=== PATIENT | female | born 1955 | race Caucasian/White ===

== ENCOUNTER → 2023-08-03 07:44 | Outpatient (REF) | payer MEDICARE, SELFPAY | LOC: WDC 07:44 | PROVIDERS: ATTENDING PHYSICIAN Internal Medicine | DX: Z12.31 Encounter for screening mammogram for malignant neoplasm of breast (principal) | CPT/HCPCS: 77063; 77067 ==

== ENCOUNTER → 2024-01-29 10:13 | Outpatient (REF) | payer MEDICARE, SELFPAY | LOC: HWRAD 10:13 | PROVIDERS: ATTENDING PHYSICIAN Family Medicine | DX: J01.00 Acute maxillary sinusitis, unspecified (principal) | CPT/HCPCS: 70486 ==

== ENCOUNTER → 2024-02-15 07:51 | Outpatient (REF) | payer MEDICARE, SELFPAY ==
[2024-02-15 09:31] LABS: ALT (SGPT) 47 U/L (0-35); AST (SGOT) 39 U/L (14-36); Albumin 4.4 g/dl (3.5-5.0); Alkaline Phosphatase 83 U/L (38-126); Amylase 72 U/L (30-110); Blood Urea Nitrogen 15 mg/dl (7-17); Calcium 9.5 mg/dl (8.4-10.2); Carbon Dioxide 31 mmol/L (22-30); Chloride 101 mmol/L (98-107); Glucose 92 mg/dl (70-99); Lipase 81 U/L (23-300); Potassium 4.3 mmol/L (3.5-5.1); Sodium 140 mmol/L (135-145); Total Bilirubin 0.6 mg/dl (0.2-1.3); Total Protein 6.9 g/dl (6.3-8.2); eGFR > 60.00
[2024-02-17 01:55] LABS: ANA, IgG Reflex to HEp-2 None Detected (None Detected)
== END ==
LOC: REG 07:51
PROVIDERS: ATTENDING PHYSICIAN Family Medicine
DX: R76.8 Other specified abnormal immunological findings in serum (principal); J30.1 Allergic rhinitis due to pollen; R10.13 Epigastric pain
CPT/HCPCS: 36415; 80053; 82150; 83690; 86038

== ENCOUNTER → 2024-02-22 06:55 | Outpatient (REF) | payer MEDICARE, SELFPAY | LOC: RAD 06:55 | PROVIDERS: ATTENDING PHYSICIAN Family Medicine; REFERRING PHYSICIAN Internal Medicine Gastroenterology | DX: R74.8 Abnormal levels of other serum enzymes (principal); J30.1 Allergic rhinitis due to pollen; R10.13 Epigastric pain | CPT/HCPCS: 76700 ==

== ENCOUNTER → 2024-05-06 09:27 | Outpatient (REF) | payer MEDICARE, SELFPAY | LOC: HWRAD 09:27 | PROVIDERS: ATTENDING PHYSICIAN Family Medicine | DX: J30.1 Allergic rhinitis due to pollen (principal); R59.9 Enlarged lymph nodes, unspecified | CPT/HCPCS: 76536 ==

== ENCOUNTER → 2024-05-06 14:08 | Outpatient (REF) | payer MEDICARE, SELFPAY ==
[2024-05-06 14:34] LABS: Glucose - Point of Care 91 mg/dl (70-99)
== END ==
LOC: RAD 14:08
PROVIDERS: ATTENDING PHYSICIAN Physician Assistant; FAMILY PHYSICIAN Family Medicine
DX: R10.31 Right lower quadrant pain (principal)
CPT/HCPCS: 82962

== ENCOUNTER 2024-05-06 22:31 | Observation (INO) | payer MEDICARE, SELFPAY ==
[2024-05-06] VITALS (12 sets, daily range): BP systolic 143–178; BP diastolic 79–98; BMI 22.0
[2024-05-06 15:57] LABS: % Basophils 0.9 % (0-2); % Eosinophils 2.3 % (0-6); % Immature Granulocytes 0.5 % (0-0.5); % Lymphocytes 42.3 % (20.5-51.1); % Monocytes 6.9 % (1.7-9.3); % Neutrophils 47.1 % (42.2-75.2); Absolute Basophils 0.1 10^3/uL (0-0.2); Absolute Eosinophils 0.1 10^3/uL (0-0.7); Absolute Lymphocytes 2.4 10^3/uL (1.2-3.4); Absolute Monocytes 0.4 10^3/uL (0.1-0.6); Absolute Neutrophils 2.7 10^3/uL (1.4-6.5); Hematocrit 36.5 % (37.0-47.0); Hemoglobin 12.5 g/dL (12.0-16.0); Mean Corp Hgb Conc. 34.2 g/dL (33.0-37.0); Mean Corpuscular Hgb 29.2 pg (27.0-31.0); Mean Corpuscular Volume 85.3 fL (81.0-99.0); Mean Platelet Volume 9.6 fL (7.4-10.4); Nucleated Red Blood Cells % 0 %; Platelet Count 262 10^3/uL (130-400); Red Blood Cell Count 4.28 10^6/uL (4.20-5.40); Red Cell Dist. Width 12.7 % (11.5-14.5); White Blood Cell Count 5.7 10^3/uL (4.8-10.8)
[2024-05-06 16:08] LABS: ALT (SGPT) 29 U/L (0-35); AST (SGOT) 34 U/L (14-36); Alkaline Phosphatase 92 U/L (38-126); Blood Urea Nitrogen 16 mg/dl (7-17); Calcium 9.6 mg/dl (8.4-10.2); Carbon Dioxide 30 mmol/L (22-30); Chloride 105 mmol/L (98-107); Estimated Creatinine Clearance 71 ml/min; Glucose 117 mg/dl (70-99); Potassium 3.5 mmol/L (3.5-5.1); Sodium 140 mmol/L (135-145); Total Bilirubin 0.5 mg/dl (0.2-1.3); Total Protein 6.7 g/dl (6.3-8.2); eGFR > 60.00
--- NOTE | 2024-05-06 16:52 | ED.GENMED ---
History of Present Illness
General
Chief Complaint: Fainting/Passed Out
Source: patient
Exam Limitations: none
Time Seen by Provider: 05/06/24 16:50
Nursing documentation reviewed up to this point in time: agreed with
History of Present Illness
History of Present Illness:
Patient is a 69 -year-old female presents to the ER for evaluation after syncopal episode. Patient is scheduled to get her gallbladder removed next week ( by DR Damian) and was doing an outpatient CAT scan. She reports she drank the barium
this morning and felt very nauseous and had diarrhea with the. She felt sick prior to even getting to radiology. She reports while sitting in the chair in radiology outpatient she felt nauseous and apparently had a syncopal episode. Patient
denies any actual chest pain. She presently just feels tired and nauseous.
Past History
Past History
ED Past Medical History: Other (Heart murmur)
ED Past Surgical History: Orthopedic (Bicep tendon repair)
Social History
Tobacco: Former smoker
Alcohol: None
Drug: None
Personal:
Living: with family
Employment: Employed
Family History
Family History: Hypertension
Review of Systems
Review of Systems
Allergies reviewed?: Yes
All Other Systems: ROS reviewed and negative except as documented in HPI and ROS
Constitutional: Reports no symptoms; Denies fever, fatigue or chills
EENT: Reports no symptoms
Respiratory: Reports no symptoms
Cardiac: Reports no symptoms
ABD/GI: Reports nausea and diarrhea; Denies abdominal pain
: Reports no symptoms
Musculoskeletal: Reports no symptoms
Skin: Reports no symptoms
Neurological: Reports no symptoms
Psychiatric: Reports no symptoms
Phy Exam
General Physical Exam
General Presentation: no apparent distress
General age: appears stated age
General Skin: warm and dry
General Habitus: normal
General Mental: alert
General Hydration: appears well hydrated
Cardiovascular Exam
Cardiovascular Exam: regular rate/rhythm, no murmur and normal peripheral pulses
Pulmonary Exam
Pulmonary Exam: lungs clear and no respiratory distress
Neurological Exam
Neurological Exam: alert and oriented x3
Musculoskeletal Exam
Musculoskeletal Exam: full ROM
Skin Exam
Skin Exam: normal color and warm/dry
Psychiatric Exam
Psychiatric Exam: normal mood/affect
Course
Orders/Labs/Results
Orders:
Orders
05/06/24 Breakfast
Clear Liquid
At Your Request: Full Participation
05/06/24 15:10
EKG [Electrocardiogram (*1)] Urgent
Reason for Study: Syncope
EKG- Treatment ONCE
05/06/24 15:40
CBC/With Diff [Complete Blood Count/With Diff] Urgent
CMP [Comprehensive Metabolic Panel] Urgent
05/06/24 16:53
0.9% Sodium Chloride 1000 ml [Nss] 1,000 ml IV BOLUS
Ondansetron Injectable [Zofran] 4 mg IV NOW STA
05/06/24 17:55
Ondansetron Injectable [Zofran] 4 mg .ROUTE .STK-MED ONE
05/06/24 17:56
Ondansetron Injectable [Zofran] 4 mg IV NOW STA
05/06/24 19:25
Ketorolac [Toradol] 15 mg IV NOW STA
05/06/24 21:35
0.9% Sodium Chloride 1000 ml [Nss] 1,000 ml IV BOLUS
Diphenhydramine [Benadryl] 25 mg IV NOW STA
Famotidine [Pepcid] 20 mg IV NOW STA
Prochlorperazine [Compazine] 10 mg IV NOW STA
05/06/24 22:00
Admit/Transfer Patient As Directed
Co-Sign Provider:
Level of Care: Observation services
Assign to:: Telemetry
Physician / Group: belia carney
Diagnosis: syncope
Reason for Telemetry: Syncope
Date to Stop Telemetry: 05/08/24
Time to Stop Telemetry: 11:00
PRN Pain Medication Management As Directed
May give lesser potent ordered pain med per pt: Yes
preference::
Protocol:: Medication orders for pain may be administered in a
manner that supports deferring to patient preference
when the pt is:
- Requesting an ordered lesser potent pain medication.
Least to most potent pain medications are defined
as: acetaminophen < NSAID < tramadol < opioids
(morphine, oxycodone, hydromorphone).
- Requesting a lesser dose of the same medication IF
ORDERED.
- Requesting a less intrusive route of administration
if both routes are prescribed by the provider (PO <
IV).
05/06/24 22:01
Code Status As Directed
Resuscitation Status: Full Code
05/06/24 22:47
0.9% Sodium Chloride 1000 ml [Nss] 1,000 ml IV 40 mls/hr
Acetaminophen [Tylenol] 650 mg PO Q4HPRN PRN
Bisacodyl [Dulcolax] 10 mg RECTAL [id number] PRN
Docusate W/Senna [Senokot-S] 1 tablet PO BIDPRN PRN
Ondansetron Injectable [Zofran] 4 mg IV Q6HPRN PRN
Polyethylene Glycol Powder [Miralax] 17 grams PO DAILYPRN PRN
05/06/24 22:47
Consult Notification Routine
Specialty to Notify: Surgical
Consult Notification Routine
Specialty to Notify: Surgical
SURGICAL CONSULT Routine
Consulting Provider: Matthew Sosa
Was physician already notified: No
Reason for consult: cholelithiasis
Activity As Directed
Activity Level: As Tolerated
Vital Signs As Directed
Frequency: Per unit guidelines
DX Deep Vein Thrombosis Video Routine
05/07/24 06:00
Abdomen/Pelvis w Contrast CT [CT Abd/pelvis W Iv Cont] IN AM
Comment: with oral and IV contrast
Reason For Exam: abdominal pain
05/07/24 08:00
Famotidine [Pepcid] 20 mg PO DAILY
Orthostatic Vital Signs As Directed
Orthostatic VS Frequency: Daily
05/07/24 18:00
Enoxaparin Sodium [Lovenox] 40 mg SC QPM
05/08/24 11:00
DC Protocol for Telemetry ONCE
Abnormal Lab Results
05/06/24
15:40
Hct 36.5 L %
(37.0-47.0)
Glucose 117 H mg/dl
(70-99)
05/06/24 15:40
05/06/24 15:40
Vital Signs
Initial and Last Documented VS:
Initial Vital Signs
Temp Pulse Resp BP Pulse Ox
97.4 F 70 16 172/87 98
05/06/24 15:13 05/06/24 15:13 05/06/24 15:13 05/06/24 15:13 05/06/24 15:13
Last Documented Vital Signs
Temp Pulse Resp BP Pulse Ox
98.1 F 68 16 158/79 98
05/06/24 22:54 05/06/24 22:54 05/06/24 22:54 05/06/24 22:54 05/06/24 22:54
MDM/Problems Addressed
Differential Diagnosis Includes:
syncope , dehydration , vasovagal syncope.
MDM/Problems Addressed:
Patient is a 69-year-old female who was scheduled to have a cholecystectomy next week. She was getting outpatient CAT scan that was ordered by her family doctor with barium and started to feel nauseous this morning while drinking the barium. She
then had a witnessed syncopal episode in radiology while drinking the barium. She has vomited several times and felt very nauseous upon presentation. She does report that she has nausea and pain associated with her gallbladder to begin with. She
was medicated for nausea and fluids here however continues to feel nauseous and not well. I offered patient CAT scan with IV contrast since she never completed the exam however she wanted to hold off.
Since patient has received fluids and nausea medicine still is persistently nauseous and not feeling well will admit.
*Pulse Oximetry
Patient hypoxic: no
*Critical Care Note
Total Time (30-74mins, 75-104mins- exclusive of procedures): Not Applicable
ED Attending Note
-
Portions of this chart may have been created with voice recognition software.� Occasional wrong word or��sound alike� substitutions may have occurred due to the inherent limitations of voice recognition software.
Discharge Plan
Departure
Patient Disposition: Admit
Date of Disposition: 05/06/24
Time of Disposition: 21:22
Admit to: Med/Surg
Admit to doctor: hospitalist
Presentation/result/management discussed w/ accepting MD/DO: Hospitalist
Patient with high blood pressure during this ER visit?: Yes
Condition: Fair
Covid-19: Not Applicable
Discharge Problem:
Syncope
Interventions
Interventions:
*Risk Screen - Suicide Last Done: 05/06/24 15:13
*General Assessment Last Done: 05/06/24 15:13
*Neglect/Abuse Screening Last Done: 05/06/24 15:13
*ED- Fall Risk Assessment Last Done: 05/06/24 15:13
*ED COVID-19 Vaccine History Last Done: 05/06/24 15:19
ED- Cardiac Assessment Last Done: 05/06/24 15:19
ED- Neurological Assessment Last Done: 05/06/24 15:19
[2024-05-06] MEDS: ZOFRAN 4 MG IV ×2 (16:57→17:57)
[2024-05-06] MEDS: NSS 1000 IV ×3 (16:59→23:13)
[2024-05-06] MEDS: TORADOL 15 MG IV (19:30)
[2024-05-06] MEDS: PEPCID 20 MG IV (21:44)
[2024-05-06] MEDS: BENADRYL 25 MG IV (21:44)
--- NOTE | 2024-05-06 21:45 | HPS.HSE ---
Family Physician
-
Family Physician: America Barahona
Chief Complaint
-
epigastric pain /nausea
History of Present Illness
69 -year-old female with PMH for gallstones presents to the ER for evaluation after syncopal episode. Patient is scheduled to get her gallbladder removed next week ( by DR Damian). her PCP ordered CT scan to see if anything else was causing
her symptoms. She reports she drank the barium this morning and felt very nauseous and had multiple episode of diarrhea and vomiting. She felt sick prior to even getting to radiology. She reports while sitting in the chair in radiology outpatient
she felt nauseous and apparently had a syncopal episode. Patient denies any actual chest pain.denied sob. stated some LO. denied dysuria or hematuria.
patient received Benadryl, famotidine, Toradol, Normal saline, Zofran and Compazine in ER. admitting for further managment.
Medical History
Past Medical History
Past Medical History: Reports Other
Additional Past Medical History:
Osteopenia
Adenomatous polyp of colon
synovitis
Hypertension
Patient is a carcinoma
Conjunctivitis
Shingles
Migraines
Vertigo
Gallstones
Past Surgical History: Reports Other
Additional Past Surgical History:
Tonsillectomy
Left bicep tendon repair
Mohs surgery left foot
Social History
Tobacco: Former Smoker
Alcohol: None
Drug: None
Living: With Family
Family History
Family History: Not pertinent
Allergies / Home Medications
Allergies reflects when Allergies were last updated in [employer].
Home Medications with original date entered in [employer]
Allergy/Medication List:
Allergies
Allergy/AdvReac Type Severity Reaction Status Date / Time
cats Allergy Unknown Uncoded 05/06/24 15:19
Home Medications
No Meds [No Current Medications] 05/05/24
Review of Systems
-
Constitutional: Reports No Symptoms
EENT: Reports No Symptoms
Respiratory: Reports No Symptoms
Cardiac: Reports No Symptoms
Abdomen/GI: Reports Abdominal Pain, Nausea, Vomiting and Diarrhea
: Reports No Symptoms
Musculoskeletal: Reports No Symptoms
Skin: Reports No Symptoms
Neurological: Reports No Symptoms
Endocrine: Reports No Symptoms
Hematologic/Lymphatic: Reports No Symptoms
Psych: Reports No Symptoms
Physical Exam
Vital Signs
Vital Signs
Temp Pulse Resp BP Pulse Ox
97.4 F 72 16 154/84 96
05/06/24 15:13 05/06/24 21:00 05/06/24 21:00 05/06/24 21:00 05/06/24 21:00
Physical Exam
General: Well Developed, Well Nourished and No Apparent Distress
HEENT: NormoCephalic, Moist mucous membranes and Atraumatic
Respiratory: Clear
Cardiac: S1/S2 and Regular Rhythm; No Murmur or Rub
GI: Soft, Non Distended, Normal Bowel Sounds and Tender; No Organomegaly
Rectal: Deferred by Provider
Musculoskeletal: No Clubbing, No Cyanosis and No Edema
Skin: No Rash
Neuro: AO x 3 and Nonfocal/grossly intact
Psych: Calm
Laboratory Results
-
05/06/24 15:40
05/06/24 15:40
Laboratory Results
Total Bilirubin 0.5 mg/dl (0.2-1.3) 05/06/24 15:40
AST 34 U/L (14-36) 05/06/24 15:40
ALT 29 U/L (0-35) 05/06/24 15:40
Alkaline Phosphatase 92 U/L (38-126) 05/06/24 15:40
Data Reviewed
-
Lab Data: Labs Reviewed by me
Impression/Plan
-
#nausea/vomiting/diarrhea likely from Barium
-clear liquid diet, advance as tolerated
-Zofran prn for n/v
-Pepcid added
#syncope likely vasovagal
-EKG with NSR
-orthostatics
#gallstones
-plan for OR on
-obtain CT of abdomen in AM
-pre mediate patient with Zofran in am prior to CT
-surgery consulted
#DVT prophylaxis
-Lovenox
#CODE status
-full code
[2024-05-06] MEDS: COMPAZINE 10 MG IV (21:46)
--- NOTE | 2024-05-06 22:07 | W.PN.UPDATE ---
Update Note
Progress Note Update
This note serves as an addendum to the H&P by cast iron dipper LEANN Lulu PINEDA
HPI
69F No PMHx , Not on any meds seen at ER
- evaluation after syncopal episode at ER;
- pending scheduled to get elective cholecystectomy coming Thurs by Dr Damian
- at outpatient CT, drank the barium this morning and felt very nauseous and had diarrhea
- She felt sick prior to even getting to radiology.
- reports while sitting in the chair in radiology outpatient she felt nauseous and apparently had a syncopal episode.
ROS
denies any actual chest pain. She presently just feels tired and nauseous.
PHX: Nil
Vital Signs
Temp Pulse Resp BP Pulse Ox
97.4 F 72 16 154/84 96
05/06/24 15:13 05/06/24 21:00 05/06/24 21:00 05/06/24 21:00 05/06/24 21:00
PE
Gen: Not toxic
HEENT: anicteric
Neck: supple. No carotid bruit
Lungs:CTA
Cor: RRR S1 S2
Abdomen: soft abdomen. Benign exam
SCHOOL ADMINISTRATOR: AAO3
MS: no edema
Psych:apprproaite
Data
05/06/24
15:40
WBC 5.7
Hgb 12.5
Plt Count 262
Potassium 3.5
BUN 16
Creatinine 0.6
eGFR > 60.00
Total Bilirubin 0.5
AST 34
ALT 29
02/22/24 US Abdomen Complete/Upper
Cholelithiasis. No evidence for gallbladder wall thickening or pericholecystic edema.
No evidence for biliary ductal dilation.
Last hospitalist admission:
ASSESSMENT & PLAN
Syncope preceded by nausea and osmotic diarrhea in response to PO contrast
Suspect vasovagal syncope
- Ortho VSS times one
- IV NS 40/H for 1 L
- PRN anti emetics
Cholelithiasis HX
No evidence for gallbladder wall thickening or pericholecystic edema.
No evidence for biliary ductal dilation.
- afebrile, nl WCC, unremarkable LFTs
- No RHC tenderness
- Can attempt CT AP PO/IV contrast, can premedicate with IV Zofran 1 hr prior to contrast while IP
- GS consult
DVT Px:
Full code
Obs TLM
--- NOTE | 2024-05-06 23:39 | PTCARENOTE ---
Pt. rec'd from ED into room 410-1 AAOx3, VSS, NSR on the monitor. Denies any nausea at this time; right upper quadrant tender with intermittent pain (level 1/10, aching), pt. denies need for pain medication. Gait slightly unsteady and pt.
generally weak but denies dizziness; fall precautions initiated. IVF's initiated, pt. oriented to room plan of care discussed. Pt. resting quietly.
[2024-05-07 03:55] VITALS: BP 138/72
[2024-05-07 08:14] VITALS: BP 129/69
--- NOTE | 2024-05-07 08:45 | W.PN.HOSP.TC ---
Today's Communication/Plan
-
Discharge today if tolerating low-fat diet
Assessment / Plan
Assessment / Plan
#Nausea/vomiting/diarrhea likely from Barium
Resolved
Can be discharged today if she tolerates her low-fat diet
#Syncope likely vasovagal
Orthostatics negative, EKG shows normal sinus rhythm
# Cholelithiasis
-General Surgery following, plan for outpatient cholecystectomy on
-Follow-up CT of abdomen/pelvis
DVT prophylaxis�subcu Lovenox
Full code
Total time spent to see the patient on the floor, examine the patient, review data and lab results, discuss treatment plan with patient, nursing staff around 35 minutes.
Physical Exam
General: No acute distress
HEENT: Normocephalic, Atraumatic, EOMI, MMM
Respiratory: Clear to Auscultation bilaterally
Cardiac: Normal S1/S2, Regular Rate and Rhythm
GI: Soft, tenderness at right upper quadrant noted, Nondistended, Normal Bowel Sounds
Extremities: No Clubbing, Cyanosis, or Edema
Neuro: Nonfocal/Grossly Intact
Psych: Calm, Cooperative
Derm: No Visible lesions
Anticipated Discharge: Today
Subjective/Interval History
-
Date of Service: May 07, 2024
Patient reports feeling better. Nausea, vomiting, diarrhea resolved. No chest pain, no shortness of breath.
Objective Data
-
Vital Signs:
Vital Signs
Temp Pulse Resp BP Pulse Ox
98.4 F 71 18 129/69 99
05/07/24 08:14 05/07/24 08:14 05/07/24 08:14 05/07/24 08:14 05/07/24 08:14
I&O
05/06/24 05/07/24 05/08/24
06:59 06:59 06:59
Intake Total 520 / 520
Balance 520 / 520
[2024-05-07] MEDS: OMNIPAQUE 50 ML PO (08:49)
[2024-05-07] MEDS: PEPCID 20 MG PO (08:53)
[2024-05-07] MEDS: ZOFRAN 4 MG IV (09:48)
[2024-05-07 11:53] VITALS: BP 145/79; BP 153/85; BP 164/91; PULSE 67; PULSE 69; PULSE 73
--- NOTE | 2024-05-07 14:04 | W.DCSUMMARY ---
Discharge Summary
Discharge Data
Date of Admission: 05/06/24
Date of Discharge: 05/07/24
-
Pending Results: No
Hospital Course
Discharge diagnosis:
Nausea/vomiting/diarrhea from barium
Syncope, likely vasovagal
Cholelithiasis
CT abd/pelvis:
No acute pathology of the abdomen or pelvis identified.
Gallstones.
Too small to characterize hypodense renal lesions likely benign cysts.
Mild diverticulosis.
Findings suggesting mild pelvic congestion syndrome.
Hospital course:
69-year-old female with a past medical history of cholelithiasis who was placed in observation for syncope while having nausea, vomiting, and diarrhea while drinking barium for an abdominal CT scan. Patient is scheduled to have an outpatient
cholecystectomy on , 05/12/2024 for cholelithiasis. She was placed in observation, received IV fluids, antiemetics. Orthostatic vital signs were negative. She was seen in conjunction with general surgery, who recommended discharge if she
can tolerate her diet. She was premedicated with Zofran prior to drinking the barium for her CAT scan. She tolerated a low-fat diet afterwards. She is medically stable for discharge, she needs to keep her outpatient cholecystectomy date on
05/12/2024.
Disposition: Home self-care
Discharge planning: Required 37 minutes
Discharge Plan
-
Patient Disposition: Home (Routine Discharge)
Discharge Diagnosis/Procedures: Vomiting and diarrhea from barium, syncope, cholelithiasis
Condition: Fair
Diet: Low Fat and Low Cholesterol
Activity: As tolerated
Driving Restrictions: As prior to admission
Activity Restrictions/Additional Instructions:
Keep your appointment for your outpatient gallbladder surgery on .
Follow-up with your primary care doctor in 1 week.
Referrals:
America Barahona, [Family Provider] - in one week
Prescriptions:
New
ondansetron 4 mg tablet,disintegrating
4 mg PO Q6H PRN (Reason: nausea and vomiting) Qty: 10 0RF
Discharge Orders:
Discharge Patient (As Directed); Ordered 05/07/24
Ordered By: Wellington Contreras
Discharge Date and Time
Discharge Date/Time: 05/07/24 16:33
Print Language: ROMANSH
--- NOTE | 2024-05-07 14:06 | CON.GS ---
Addendum entered and electronically signed by Matthew Sosa MD 05/07/24 14:42:
Patient seen and examined.
Ms Nicholson is a 69 yo female who has a h/o gallstones and recurrent symptoms of biliary colic as well as recurrent nausea. She has been following closely with GI as an outpatient and was recommended to undergo surgical evaluation for cholecystectomy.
She was seen and evaluated by Dr. Alvarado as an outpatient with plan for laparoscopic cholecystectomy planned on May 12. She was undergoing a CT of the abd/pelvis yesterday as an outpatient and began having worsening nausea with vomiting after
ingesting barium contrast. In the CT scan area, she began vomiting and simultaneously had diarrhea and then lost consciousness briefly and was therefore sent to the ED for evaluation. She feels as though she is back to her baseline GI symptoms of
intermittent RUQ discomfort with nausea. She has minimal tenderness to the RUQ. She denies dizziness or lightheadedness.
Gen: NAD
Abd: soft, NT/ND, non-peritoneal
Labs and imaging reviewed.
Patient is a 69 yo female with h/o biliary colic with nausea presents with n/v/d with PO contrast with syncope in CT area secondary to vasovagal.
Feels back to baseline. No leukocytosis. No fevers. VSS. CT imaging done today consistent with cholelithiasis. No cholecystitis upon my personal review although await final read.
Patient eager for discharge and outpatient management.
--Advance diet to Low fat
--If tolerating diet, OK to d/c to home for outpatient lap jeannine as previously scheduled on 05/12
Original Note:
Medical History
-
Chief Complaint: n/v/d, syncope
History of Present Illness:
Ms Nicholson is a 69 yo female who has a h/o gallstones and recurrent symptoms of biliary colic as well as recurrent nausea. She has been following closely with GI as an outpatient and was recommended to undergo surgical evaluation for cholecystectomy.
She was seen and evaluated by Dr. Alvarado as an outpatient with plan for laparoscopic cholecystectomy planned on May 12. She was undergoing a CT of the abd/pelvis yesterday as an outpatient and began having worsening nausea with vomiting after
ingesting barium contrast. In the CT scan area, she began vomiting and simultaneously had diarrhea and then lost consciousness briefly and was therefore sent to the ED for evaluation. She feels as though she is back to her baseline GI symptoms of
intermittent RUQ discomfort with nausea. She has minimal tenderness to the RUQ. She denies dizziness or lightheadedness.
Past Medical History
Past Medical History: Cancer (skin) and Other (vertigo, migraines, shingles, gallstones with biliary colic)
Past Surgical History: Orthopedic (left bicep tendon repair), Tonsilectomy and Other (Mohs left foot)
Social History
Tobacco: Former Smoker
Alcohol: None
Family History
Family History: Reviewed & Not Pertinent
Allergies / Home Medications
Allergy/AdvReac Type Severity Reaction Status Date / Time
cats Allergy Unknown Uncoded 05/06/24 15:19
�Medication �Instructions �Recorded �Confirmed �Type
ondansetron 4 mg disintegrating 4 mg PO Q6H PRN nausea and 05/07/24 Rx
tablet vomiting #10 tabs
Review of Systems
-
History Source: Patient
All other systems: Negative unless noted
A 10 point review of systems was completed, and was negative except as per HPI.
Physical Exam
Vital Signs
Temp Pulse Resp BP Pulse Ox
98.2 F 71 18 129/69 98
05/07/24 11:53 05/07/24 08:14 05/07/24 11:53 05/07/24 08:14 05/07/24 11:53
05/06/24 05/07/24 05/08/24
06:59 06:59 06:59
Actual Weight 54.522 kg
Body Mass Index (BMI) 22.0
Lab Results
05/06/24 15:40
05/06/24 15:40
WBC 5.7 10^3/uL (4.8-10.8) 05/06/24 15:40
Hgb 12.5 g/dL (12.0-16.0) 05/06/24 15:40
Hct 36.5 % (37.0-47.0) L 05/06/24 15:40
Plt Count 262 10^3/uL (130-400) 05/06/24 15:40
Abs Immat Gran (auto) 0.0 10^3/uL (0-0.05) 05/06/24 15:40
Neutrophils % 47.1 % (42.2-75.2) 05/06/24 15:40
Physical Exam
General: Well Developed and Well Nourished
HEENT: Moist Mucous Membranes
Respiratory: Non Labored Respirations
GI: Soft, Non Distended and Tender (mild to RUQ)
Skin: Warm and Dry
Neuro: Awake, Alert and AO x 3
Psych: Calm
Data Reviewed
-
CT Scan: Image Personally Visualized and interpreted, Discussed with Physician and Discussed with Patient
Labs: Labs Reviewed by me, Discussed with Physician and Discussed with Patient
Old Records: Reviewed
Assessment / Plan
-
69 yo female with h/o biliary colic with nausea presents with n/v/d with PO contrast with syncope in CT area secondary to vasovagal. Feels back to baseline. No leukocytosis. No fevers. VSS. CT imaging done today consistent with cholelithiasis. No
cholecystitis upon my personal review although await final read.
--Advance diet to Low fat
--If tolerating diet, OK to d/c to home for outpatient lap jeannine as previously scheduled on 05/[address] Dr Contreras via TT
--- NOTE | 2024-05-07 14:33 | CHAP ---
Namita was welcoming - she shared her story and her courageous spirit. Emotional and spiritual support provided.
[2024-05-07 15:00] VITALS: BP 125/77
--- NOTE | 2024-05-07 15:57 | CM ---
Patient for d/c today. Patient seen bedside. Initial assessment completed. Patient is a 69 -year-old female with PMH for gallstones presents to the ER for evaluation after syncopal episode.
Patient reports that she resides alone in a [address]- 2 steps from the front and 2 steps from the garage. Independent w/ ambulating, no device required. Independent w/ ADLs. No DME identified. Patient denies SNF/HC hx. OP therapy in the past. No current
OP or home services at this time.
Address, point of contact and insurance verified
PCP: America Barahona
Pharmacy: [facility]
Patient is admitted as OBS. BENNETT form verbally reviewed, patient given copy, copy placed in chart. Patient stated ED doctor informed her that she would not be admitted OBS and inquiring who to talk to regarding this. CM shared that a physician
advisor determines LOC and if a patient is admitted OBS or IP based on insurance and criteria. Patient stated she had this issue w/ her in the past and will call Thursday morning to address this.
IMM verbally reviewed, patient given copy, copy placed on chart
Plan: Home today; no needs
== END 2024-05-07 16:33 | disposition home or self-care (01) ==
LOC: 4 EAST ACU 22:31
PROVIDERS: ADMITTING PHYSICIAN Internal Medicine; ATTENDING PHYSICIAN Family Medicine; CONSULT PHYSICIAN Surgery; EMERGENCY PHYSICIAN Student in an Organized Health Care Education/Training Program; FAMILY PHYSICIAN Family Medicine
DX: K80.20 Calculus of gallbladder without cholecystitis without obstruction (principal); R11.2 Nausea with vomiting, unspecified; R55 Syncope and collapse; R10.13 Epigastric pain; R19.7 Diarrhea, unspecified; Z90.89 Acquired absence of other organs; Z87.891 Personal history of nicotine dependence
CPT/HCPCS: 74177; 80053; 85025; 93005; 96361; 96374; 96375; 96376; 99284; G0378; Q9967

== ENCOUNTER 2024-05-12 06:20 | Day surgery (SDC) | payer MEDICARE, SELFPAY ==
[2024-05-12] VITALS (9 sets, daily range): BP systolic 132–172; BP diastolic 67–96; BMI 22.0
[2024-05-12] MEDS: TYLENOL 1000 MG PO (08:27)
[2024-05-12] MEDS: NORMOSOL-R/PLASMALYTE-A 1000 IV (08:27)
--- NOTE | 2024-05-12 08:47 | W.SUR.PREOP ---
Pre-Operative Surgical Note
-
I have examined this patient prior to the performance of the scheduled procedure.
The patient's condition is unchanged from the time of the current History and
Physical and the patient is able to undergo the scheduled procedure.
--- NOTE | 2024-05-12 10:31 | W.IMMPOSTOP ---
Surgical Immed Post Op Note
-
Primary Surgeon: Donny Alvarado MD
Assisting Surgeon: None
Pre-op Diagnosis: Biliary colic
Post-op Diagnosis: Same
Procedure Performed: Laparoscopic cholecystectomy with cholangiogram
Anesthesia Type: General
Specimen / Cultures: Gallbladder and contents
Estimated Blood Loss: 3 cc
Complications: None
Operative Findings: Critical view of safety obtained prior to a cholangiogram which demonstrated no appreciable filling defects, though visualization of the hepatic ducts was somewhat limited. There was free flow of contrast into the duodenum. No
spillage of bile or stones. Duct ligated with a clip followed by 0 PDS Endoloop.
--- NOTE | 2024-05-12 10:32 | OR.RPT ---
Operative Report
Operative Report
Patient Name: Namita Nicholson
: 1955
Date of Operation: 05/12/2024
Preoperative Diagnosis: Biliary colic
Postoperative Diagnosis: Same
Procedure(s):
Laparoscopic Cholecystectomy with Cholangiogram
Surgeon(s):
Dr. Alvarado
Earthmoving Plant Operator(s):
SOUMYA Heller
Anesthesia: General
Estimated Blood Loss: 3 cc
Urine Output: None
Drains/Lines/Implants: None
Specimens:
1. Gallbladder and contents
HPI/Surgical Indications:
This is a 69-year-old female who presents with worsening postprandial right upper quadrant abdominal pain in the setting of similar symptoms and known gallstones for several years. Exam, labs and imaging are consistent with biliary colic.
Risks/Benefits/Alternatives were discussed at length, and the patient agreed to proceed with surgery.
Operative Findings: Critical view of safety obtained prior to a cholangiogram which demonstrated no appreciable filling defects, though visualization of the hepatic ducts was somewhat limited. There was free flow of contrast into the duodenum. No
spillage of bile or stones. Duct ligated with a clip followed by 0 PDS Endoloop.
Procedure Description:
The patient was brought to the Operating Room and placed in the supine position with one arm tucked. Following uneventful induction of general endotracheal anesthesia, an orogastric tube was placed. The abdomen was prepped and draped in the usual
sterile fashion. A timeout was performed confirming the procedure, consent, and that IV antibiotics were infused and sequential compression devices were confirmed to be on. The abdomen was entered using an infraumbilical open Chelsey technique with
a 12 mm balloon-tipped trocar. Pneumoperitoneum to 15 mmHg pressure was obtained without difficulty and we confirmed that no injury had occurred during our entry. The patient was positioned in reverse Trendelenberg and rotated with the right side
up slightly. Three (3) 5mm trocars were then placed along the right subcostal margin. A locking grasping forceps was placed on the fundus of the gallbladder where it was then retracted cephalad and to the right. Using appropriate grasping
instruments, the peritoneum overlying the triangle of Calot was incised and extended superiorly on both the anterior and posterior gallbladder golden. The infundibulum was dissected off the cystic plate. The cystic triangle was dissected until a
critical view of safety was achieved. The cystic artery was medialized, dissected and controlled with 2 proximal clips and 1 distal. The cystic duct/gallbladder junction in turn was identified, dissected circumferentially and a clip was placed. A
ductotomy was made and a cholangiocatheter on an Schroeder clamp was inserted into the cystic duct. A C-arm was draped and brought into the field. An intra-operative cholangiogram was performed and was noted to have:
No filling defects in the biliary tree
No significant biliary dilation
Brisk flow of contrast into the duodenum
Normal biliary anatomy, though visualization of the common hepatic duct was somewhat limited due to spillage of contrast.
The catheter was then removed and the cystic duct was controlled with a clip followed by a 0 PDS Endoloop. After ensuring both the artery and duct were divided, the gallbladder was freed from the liver using electrocautery. There was no spillage
of bile or stones. The gallbladder bed was inspected and excellent hemostasis was obtained. The gallbladder was extracted through the 12 mm trocar site using an endocatch bag. The abdomen was again irrigated and excellent hemostasis was assured.
All remaining trocars were then removed and the pneumoperitoneum was evacuated. The 12 mm trocar site was closed using 0 PDS suture. All trocar sites were closed at the skin level using 4-0 Monocryl followed by Dermabond. Overall, the patient
tolerated the procedure well and was taken to the Recovery Room postoperatively in stable condition.
I was the attending physician and performed the procedure with assistance of the PA above. The assistance of SOUMYA Heller was required due to the complexity of the procedure. During the procedure Chari assisted with port placement, retraction,
resection, and closure of the wound. I was present for all portions of the case, excluding skin closure.
Donny Alvarado MD
[2024-05-12] MEDS: TORADOL 15 MG IV (12:06)
== END 2024-05-12 13:33 | disposition home or self-care (01) ==
LOC: SDS 06:20
PROVIDERS: ATTENDING PHYSICIAN Surgery
DX: K80.10 Calculus of gallbladder with chronic cholecystitis without obstruction (principal)
CPT/HCPCS: 47563; 88304; 74300; 76000; A4300

== ENCOUNTER → 2024-08-03 07:02 | Outpatient (REF) | payer MEDICARE, SELFPAY | LOC: WDC 07:02 | PROVIDERS: ATTENDING PHYSICIAN Family Medicine | DX: Z12.31 Encounter for screening mammogram for malignant neoplasm of breast (principal) | CPT/HCPCS: 77063; 77067 ==

== ENCOUNTER → 2024-12-12 09:01 | Outpatient (REF) | payer MEDICARE, SELFPAY ==
[2024-12-12 10:18] LABS: Amylase 83 U/L (30-110); Lipase 93 U/L (23-300)
[2024-12-14 01:01] LABS: ANA, IgG Reflex to HEp-2 None Detected (None Detected)
== END ==
LOC: REG 09:01
PROVIDERS: ATTENDING PHYSICIAN Family Medicine
DX: R10.13 Epigastric pain (principal); R76.89 Other specified abnormal immunological findings in serum
CPT/HCPCS: 36415; 82150; 83690; 86038